=== PATIENT | male | born 1995 ===

== ENCOUNTER 2018-08-13 18:03 | Day surgery (SDC) | payer SELFPAY ==
[~2018-08-13 18:03] MED LIST: Dexamethasone 20 MG/5 ML VIAL ONE; Glycopyrrolate 0.2 MG/ML 5 ML SYRINGE ONE; Lidocaine 1% PF 5 ML VIAL ONE; Ondansetron PF 4 MG/2 ML Vial ONE; PROPOFOL 200 MG/20 ML VIAL ONE; Rocuronium Bromide 10 MG/ML (10ML VIAL) ONE; Succinylcholine Chloride 20 MG/ML 10 ml SYRINGE FS ONE
[2018-08-13] MEDS ORDERED: Bupivacaine HCl 0.5%/Epinephrine 1:200,000/PF 30 ml Vial ONE (18:17)
[2018-08-13] MEDS ORDERED: Bupivacaine/Epinephrine 0.25% 30 ML VIAL ONE (18:17)
[2018-08-13] MEDS ORDERED: Ketorolac Tromethamine 30 MG/ML VIAL ONE ×2 (18:55→19:37)
[2018-08-13] MEDS ORDERED: Fentanyl 100 MCG/2 ML VIAL ONE (18:57)
--- NOTE | 2018-08-13 20:57 | HP ---
from [place], lives in an apartment with roommates, experienced acute onset of right lower quadrant pain. Yesterday morning, he suffered anorexia all the way at 8:04 p.m. before going to [facility]. At [facility], he has evaluated and had a CAT scan confirming appendicitis. He is sent for appendectomy. Pain is worse with movement. ALLERGIES: NONE. SOCIAL HISTORY: Tobacco, 2 to 3 times a week. Alcohol, occasionally. MEDICATIONS: None routinely. PAST SURGICAL HISTORY: Dental. PAST MEDICAL HISTORY: Noncontributory. PHYSICAL EXAMINATION: VITAL SIGNS: Blood pressure 134/94, temperature 98.3 degrees, heart rate 84, and respiratory rate 18. HEAD, EARS, EYES, NOSE, AND THROAT: Unremarkable. LUNGS: Clear to auscultation. CARDIAC: Rhythm without murmur or gallop. ABDOMEN: Soft and tenderness in his right lower quadrant, guarding, rebound. EXTREMITIES: Unremarkable. LABORATORY DATA: Urinalysis unremarkable. White count 15 and hemoglobin 16.2. Basic metabolic profile is normal from [facility]. He received Zosyn at [facility] as well as 15 mg of Toradol. He is transferred for appendectomy. CAT scan as noted above, did confirm appendicitis with dilated appendix. ASSESSMENT AND PLAN: Acute appendicitis. We recommend laparoscopic video appendectomy. Risks of infection, bleeding, reoperation, open procedure discussed. He consents. Questions answered. Job ID: [id number]
--- NOTE | 2018-08-14 02:29 | OP ---
DATE OF PROCEDURE: 08/13/2018 PREOPERATIVE DIAGNOSIS: Acute appendicitis. POSTOPERATIVE DIAGNOSIS: Acute appendicitis. PROCEDURE PERFORMED: Laparoscopic video appendectomy. ANESTHESIA: General, local 0.5% Marcaine with epinephrine 30 mL. DESCRIPTION OF PROCEDURE: The patient was taken to the operating room under general anesthesia. Abdomen was clipped of hair. Boo catheter placed at the beginning of incision and removed at the end, and abdomen prepared with ChloraPrep, draped in routine fashion. Local anesthetic was infiltrated into the skin and subcutaneous tissue about each port site. Infraumbilical incision was made. Pneumoperitoneum to 15 mmHg obtained with a Veress needle, replaced with a 5 port via laparoscope inserted. Suprapubic incision was made and a 12 port placed. Right lateral subcostal incision made and a 5 port placed. Appendix was acutely inflamed and mesoappendix taken down with the LigaSure. The stump of the appendix divided with the Endo-ZELALEM blue load stapler. Appendix removed and submitted to Pathology. Stapled cecal stump was hemostatic and secured. As it was irrigated, irrigant and pneumoperitoneum evacuated. All instruments were removed. All skin incisions were approximated with interrupted subdermal 4-0 Monocryl after suprapubic fascia was approximated with 0 Vicryl UR needle. The patient tolerated the procedure well. Job ID: [id number]
== END 2018-08-13 21:28 | disposition home or self-care (01) ==
LOC: SDC/OP 18:03
PROVIDERS: ATTEND Specialist
PROC: 0DTJ4ZZ Resection of Appendix, Percutaneous Endoscopic Approach (ICD-10-PCS; principal; 2018-08-13)
DX: K35.80 Unspecified acute appendicitis (principal)
CPT/HCPCS: 88304; J0131; J0670; J1100; J1885; J2001; J2405; J2704; J3010